=== PATIENT | male | born 1935 | race Caucasian/White ===

== ENCOUNTER 2019-02-11 11:29 | Inpatient (IN) ==
[2019-02-11] MEDS ORDERED: Isovue-370 500 ML BOTTLE IVP ONE ×2 (11:43→12:39)
[2019-02-11] MEDS ORDERED: 0.9 % Sodium Chloride 1,000 ML IVC STA ×3 (11:44→13:54)
[2019-02-11] MEDS ORDERED: Ondansetron 4 MG/2 ML VIAL IVP STA (11:44)
--- NOTE | 2019-02-11 11:55 | Emergency Department Note ---
Disposition Clinical Impression: Elevated troponin I level, AV block, Mobitz 2 UTI (urinary tract infection) Qualifiers: Urinary tract infection type: acute cystitis Hematuria presence: without hematuria Qualified Code(s): N30.00 - Acute cystitis without hematuria Acute on chronic kidney failure Qualifiers: Acute renal failure type: with acute tubular necrosis Chronic kidney disease stage: unspecified stage Qualified Code(s): N17.0 - Acute kidney failure with tubular necrosis Disposition: Admitted As Inpatient Condition: Fair Time of Disposition: 18:25 General Adult HPI - General Stated complaint: nausea/vomiting Time Seen by Provider: 02/11/19 11:36 Nursing Notes Reviewed: Yes Vital Signs Reviewed: Yes - History of Present Illness HPI Narrative: 83-year-old male with history of prostate cancer on chemotherapy since last year, CABG, HTN who presents the emergency department with family via EMS secondary to syncope, nausea, vomiting and generalized malaise. Is been wors ening over the last few days. He did have a syncopal episode yesterday where he fell. This was unwitnessed and he is unsure if he hit his head or loss consciousness. He otherwise had one episode of nausea, vomiting today though he does not complain of abdominal pain. Family states he has had decreased oral intake and they are concerned he is dehydrated. Otherwise the patient denies any chest pain, shortness of breath, fever, chills, cough, numbness, tingling, or focal weakness. - Related Data Home Medications Medication Instructions Recorded Confirmed Aspirin [Lo-Dose Aspirin EC] 81 mg PO DAILY 02/11/19 02/11/19 Atorvastatin Calcium [Lipitor] 20 mg PO DAILY 02/11/19 02/11/19 Enzalutamide [Xtandi] 60 mg PO QID 02/11/19 02/11/19 Metoprolol Succinate 25 mg PO DAILY 02/11/19 02/11/19 Ramipril [Altace] 10 mg PO DAILY 02/11/19 02/11/19 hydroCHLOROthiazide 25 mg PO DAILY 02/11/19 02/11/19 [Hydrochlorothiazide] Allergies Allergy/AdvReac Type Severity Reaction Status Date / Time Penicillins Allergy Hives Verified 02/11/19 11:59 Review of Systems: ROS per history of present illness, all other systems reviewed and negative or normal. All systems ED: reviewed and negative except as stated. Review of Systems: As Per HPI Physical Exam General: Conversant. No apparent distress. Follow commands. Appears stated age. Neck: No JVD. Trachea midline. Neck supple. Eyes: PERRL. No scleral icterus. HENT: Normocephalic and atraumatic. Dry mucus membranes. Cardiovascular: Regular rate and rhythm. Normal S1 and S2. No murmurs appreciated. Normal capillary refill. Extremities well perfused with 2+ distal pulses bilaterally. No edema. Pulmonary: Normal and equal breath sounds bilaterally, anteriorly and posteriorly. No wheezes, rales, or rhonchi. Not in respiratory distress. Speaks in full sentences. Abdomen: Soft, nondistended, and tontender. No bruits or masses. No guarding. Neuro: Alert and oriented x3. No slurred speech. No focal deficits noted. Does appear intermittently confused on details of his conditions. Skin: No rashes noted on visualized skin. Musculoskeletal: No bony abnormalities visualized. Moves all extremities. Psych: Normal mood. Pleasant. Makes appropriate eye contact. Course - Reevaluation(s) Reevaluation #1: Patient now on 3L fluid bolus and continues to be hypotensive with systolic in 90s. He continues to feel comfortable. 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 Will repeat EKG. Hospitalist paged and discussed case and prefers to wait for full EKG and cardiology recommendations. Time: 16:49 Vital Signs Temperature 97.4 F L 02/11/19 11:35 Pulse Rate 57 02/11/19 11:35 Respiratory Rate 20 02/11/19 11:35 Blood Pressure 76/42 02/11/19 11:35 O2 Sat by Pulse Oximetry 94 02/11/19 11:35 Temperature 98.0 F 02/11/19 18:42 Pulse Rate 61 02/11/19 18:42 Respiratory Rate 14 02/11/19 18:42 Blood Pressure 108/50 02/11/19 18:42 O2 Sat by Pulse Oximetry 96 02/11/19 18:42 Oxygen Delivery Oxygen Delivery Room Air Medical Decision Making - [facility] Narrative Medical decision making narrative: 83-year-old male with history of prostate cancer, CABG, hypertension who presents the emergency department with complaints of nausea, vomiting, and syncope yesterday. On arrival patient's hypotensive but other vital signs stable. Afebrile. Not tachycardic. He is alert and oriented 3 but does not appear to be fully capable of providing an adequate history. The patient does appear to be dehydrated therefore initiated fluid resuscitation and obtain laboratory evaluation as well as imaging of his head and abdomen/pelvis. Patient's laboratory evaluation shows No significant leukocytosis, anemia with hemoglobin 11.9. BMP shows he went 87, creatinine 3.53 without elevated LFTs. Urinalysis shows urinary tract infection. The patient received total of 3 L fluid bolus and then was started on maintenance fluids with normal saline with persistent low blood pressures with stable and he did not require vasopressor support. He was initiated on IV Rocephin. Lactate not elevated. Blood cultures drawn. Otherwise given the patient's fall that was unwitnessed CT head was obta ined which shows no evidence of acute intracranial hemorrhage. CT abdomen/pelvis shows no acute abnormalities but does show right lower quadrant fluid collection of indeterminate origin. At this point do not believe this is of clinical significance. Initial EKG shows prolonged LA interval but otherwise no evidence of acute ischemic abnormalities. After fluid resuscitation here in the emergency department the patient had a run on telemetry which shows possible Mobitz type II AV block. Repeat EKG was obtained which shows similar findings to previous and the type II AV block was not visualized fully. Cardiology was contacted who recommends continued management of urinary tract infection, acute on chronic kidney disease and dehydration but will consult to see the patient while admitted. Given the patient's likely acute on chronic kidney disease, hypotension, elevated troponin, AV block do believe he warrants inpatient admission. Discussed case with on-call hospitalist Dr. Solo who agrees with plan for admission and accepts the patient to the inpatient service. Patient agrees with and understands course of treatment plan including plan for admission. All questions answered. - Medical Records Medical records reviewed: Yes I reviewed the patient's medical records. - Lab Data Lab results reviewed: Yes I reviewed the patient's lab results. Result diagrams: 02/11/19 11:55 02/11/19 18:57 Lab Results 02/11/19 02/11/19 02/11/19 Range/Units 11:55 11:55 11:55 WBC 7.4 (4.3-11.1) K/mcL RBC 3.76 L (4.19-5.50) M/mcL Hgb 11.9 L (12.9-16.9) g/dL Hct 36.4 L (37.5-50.1) % MCV 96.8 (83.0-100.0) fL MCH 31.6 (28.0-33.3) pg MCHC 32.7 (31.6-35.5) g/dL RDW 14.0 (11.5-14.5) % Plt Count 219 (140-400) K/mcL MPV 11.7 (9.4-12.4) fL Immature Gran % 0.8 (0-4) % Seg Neutrophils % 81.0 % Lymphocytes % 7.2 % Monocytes % 8.3 % Eosinophils % 2.3 % Basophils % 0.4 % Neutrophils # 6.0 (1.6-8.9) K/mcL Lymphocytes # 0.5 L (0.6-4.6) K/mcL Monocytes # 0.6 (0.0-1.3) K/mcL Eosinophils # 0.2 (0.0-0.6) K/mcL Basophils # 0.0 (0.0-0.2) K/mcL PT (9.4-12.1) Seconds INR APTT (26.0-36.0) Seconds Sodium 136 (136-145) mEq/L Potassium 4.4 (3.5-5.1) mEq/L Chloride 103 (98-107) mEq/L Carbon Dioxide 20 L (23-29) mEq/L BUN 87 H (8-23) mg/dL Creatinine 3.53 H (0.70-1.30) mg/dL Est GFR ( Amer) 20 L (> 60) Est GFR (Non-Af Amer) 17 L (> 60) BUN/Creatinine Ratio 25 (6-26) Glucose 221 H (70-105) mg/dL Calculated Osmolality 315 H (280-300) Lactic Acid 1.7 (0.5-2.2) mmol/L Calcium 10.0 (8.6-10.3) mg/dL Total Bilirubin 1.0 (0.3-1.0) mg/dL Direct Bilirubin 0.1 (0.0-0.2) mg/dL Indirect Bilirubin 0.9 (0.0-1.2) mg/dL AST 19 (13-39) Units/L ALT 11 (7-52) Units/L Alkaline Phosphatase 75 (34-104) Units/L Troponin I 0.20 H* (< 0.04) ng/mL Serum Total Protein 6.7 (6.4-8.9) g/dL Albumin 3.9 (3.5-5.7) g/dL Globulin 2.8 (2.4-3.5) g/dL Albumin/Globulin Ratio 1.4 (1.1-2.2) Lipase 36 (11-82) Units/L TSH 2.857 (0.340-5.600) mcIU/mL Urine Color (Yellow) Urine Clarity (Clear) Urine pH (5.0-8.0) pH Units Ur Specific [place] (1.010-1.025) Urine Protein (Neg-Trace) mg/dL Urine Glucose (UA) (Normal) mg/dL Urine Ketones (Negative) mg/dL Urine Blood (Negative) Urine Nitrite (Negative) Urine Bilirubin (Negative) Urine Urobilinogen (Normal) mg/dL Ur Leukocyte Esterase (Negative) Urine Microscopic WBC (0-3) per hpf Ur Squamous Epith Cells (None-Few) per lpf Urine Bacteria (None-Few) per hpf Hyaline Casts (None-Few) per lpf Ur Culture Indicated? (NO) 02/11/19 02/11/19 Range/Units 11:55 13:27 WBC (4.3-11.1) K/mcL RBC (4.19-5.50) M/mcL Hgb (12.9-16.9) g/dL Hct (37.5-50.1) % MCV (83.0-100.0) fL MCH (28.0-33.3) pg MCHC (31.6-35.5) g/dL RDW (11.5-14.5) % Plt Count (140-400) K/mcL MPV (9.4-12.4) fL Immature Gran % (0-4) % Seg Neutrophils % % Lymphocytes % % Monocytes % % Eosinophils % % Basophils % % Neutrophils # (1.6-8.9) K/mcL Lymphocytes # (0.6-4.6) K/mcL Monocytes # (0.0-1.3) K/mcL Eosinophils # (0.0-0.6) K/mcL Basophils # (0.0-0.2) K/mcL PT 11.6 (9.4-12.1) Seconds INR 1.0 APTT 33.5 (26.0-36.0) Seconds Sodium (136-145) mEq/L Potassium (3.5-5.1) mEq/L Chloride (98-107) mEq/L Carbon Dioxide (23-29) mEq/L BUN (8-23) mg/dL Creatinine (0.70-1.30) mg/dL Est GFR ( Amer) (> 60) Est GFR (Non-Af Amer) (> 60) BUN/Creatinine Ratio (6-26) Glucose (70-105) mg/dL Calculated Osmolality (280-300) Lactic Acid (0.5-2.2) mmol/L Calcium (8.6-10.3) mg/dL Total Bilirubin (0.3-1.0) mg/dL Direct Bilirubin (0.0-0.2) mg/dL Indirect Bilirubin (0.0-1.2) mg/dL AST (13-39) Units/L ALT (7-52) Units/L Alkaline Phosphatase (34-104) Units/L Troponin I (< 0.04) ng/mL Serum Total Protein (6.4-8.9) g/dL Albumin (3.5-5.7) g/dL Globulin (2.4-3.5) g/dL Albumin/Globulin Ratio (1.1-2.2) Lipase (11-82) Units/L TSH (0.340-5.600) mcIU/mL Urine Color Yellow (Yellow) Urine Clarity Cloudy A (Clear) Urine pH 5.0 (5.0-8.0) pH Units Ur Specific [place] 1.016 (1.010-1.025) Urine Protein Trace (Neg-Trace) mg/dL Urine Glucose (UA) 100 H (Normal) mg/dL Urine Ketones Negative (Negative) mg/dL Urine Blood Negative (Negative) Urine Nitrite Negative (Negative) Urine Bilirubin Negative (Negative) Urine Urobilinogen Normal (Normal) mg/dL Ur Leukocyte Esterase Large H (Negative) Urine Microscopic WBC 30-50 H (0-3) per hpf Ur Squamous Epith Cells Many H (None-Few) per lpf Urine Bacteria None Seen (None-Few) per hpf Hyaline Casts None Seen (None-Few) per lpf Ur Culture Indicated? YES A (NO) - Radiology Data Radiology results reviewed: Yes I reviewed the patient's radiology results. Chest X-Ray 02/11/19 11:42 IMPRESSION: No acute cardiopulmonary disease. D/ / Anthony Jaffe MD / Antohny Jaffe MD Interpreting Provider: Anthony Jaffe MD Head CT 02/11/19 11:54 IMPRESSION: Atrophy and small vessel ischemic disease. Possible polyp extending from the posterior left nasal passage to the nasopharynx. Recommend correlation with direct visualization. Diverticulosis, without vivian diverticulitis. 2.6 cm simple density anterior right lower quadrant fluid collection, potentially postoperative seroma, aged hematoma, or lymphocele, sterility indeterminate. Correlate with any history of surgery in the region. D/ / Bola Velasco MD / Bola Velasco MD Interpreting Provider: Bola Velasco MD Abdomen/Pelvis CT 02/11/19 12:41 IMPRESSION: Atrophy and small vessel ischemic disease. Possible polyp extending from the posterior left nasal passage to the nasopharynx. Recommend correlation with direct visualization. Diverticulosis, without vivian diverticulitis. 2.6 cm simple density anterior right lower quadrant fluid collection, potentially postoperative seroma, aged hematoma, or lymphocele, sterility indeterminate. Correlate with any history of surgery in the region. D/ / Bola Velasco MD / Bola Velasco MD Interpreting Provider: Bola Velasco MD - EKG Data EKG #1 EKG attestation: Yes I reviewed and interpreted this EKG. EKG results narrative: Normal sinus rhythm rate of 56. Normal axis. Prolonged LA interval 353. No acute ST elevations or T-wave abnormalities. No prior for comparison. Repeat EKG similar to previous, no evidence of further AV block.
[2019-02-11 12:17] LABS: Basophils % 0.4 %; Eosinophils # 0.2 K/mcL (0.0-0.6); Eosinophils % 2.3 %; Hematocrit 36.4 % (37.5-50.1); Hemoglobin 11.9 g/dL (12.9-16.9); Immature Granulocytes % 0.8 % (0-4); Lymphocytes # 0.5 K/mcL (0.6-4.6); Lymphocytes % 7.2 %; Mean Corpuscular HGB Conc 32.7 g/dL (31.6-35.5); Mean Corpuscular Hemoglobin 31.6 pg (28.0-33.3); Mean Corpuscular Volume 96.8 fL (83.0-100.0); Mean Platelet Volume 11.7 fL (9.4-12.4); Monocytes # 0.6 K/mcL (0.0-1.3); Monocytes % 8.3 %; Platelet Count 219 K/mcL (140-400); Red Blood Count 3.76 M/mcL (4.19-5.50); White Blood Count 7.4 K/mcL (4.3-11.1)
[2019-02-11 12:29] LABS: Prothrombin Time 11.6 Seconds (9.4-12.1)
[2019-02-11 12:31] LABS: Activated Partial Thrombo Time 33.5 Seconds (26.0-36.0)
[2019-02-11 12:38] LABS: Albumin 3.9 g/dL (3.5-5.7); Albumin/Globulin Ratio 1.4 (1.1-2.2); Bilirubin,Direct 0.1 mg/dL (0.0-0.2); Bilirubin,Indirect 0.9 mg/dL (0.0-1.2); Globulin 2.8 g/dL (2.4-3.5); Potassium 4.4 mEq/L (3.5-5.1); Total Protein 6.7 g/dL (6.4-8.9); Troponin I 0.2 ng/mL (< 0.04)
[2019-02-11 13:35] LABS: Bilirubin,Urine Negative (Negative); Blood,Urine Negative (Negative); Clarity,Urine Cloudy (Clear); Color,Urine Yellow (Yellow); Glucose,Urine (UA) 100 mg/dL (Normal); Ketones,Urine Negative (Negative); Leukocyte Esterase,Urine Large (Negative); Nitrite,Urine Negative (Negative); Protein,Urine Trace mg/dL (Neg-Trace); Specific Gravity,Urine 1.016 (1.010-1.025); Urobilinogen,Urine Normal (Normal)
[2019-02-11 13:38] LABS: Bacteria,Urine None Seen per hpf (None-Few); Hyaline Casts,Urine None Seen per lpf (None-Few); Squamous Epithelial Cell,Urine Many per lpf (None-Few); WBC,Urine 30-50 per hpf (0-3)
[2019-02-11] MEDS ORDERED: cefTRIAXone 1,000 MG in Water for inj. (sterile) 10 ML IVP ONE (13:59)
--- NOTE | 2019-02-11 16:49 | Emergency Department Note ---
Disposition Clinical Impression: Elevated troponin I level, AV block, Mobitz 2 UTI (urinary tract infection) Qualifiers: Urinary tract infection type: acute cystitis Hematuria presence: without hematuria Qualified Code(s): N30.00 - Acute cystitis without hematuria Acute on chronic kidney failure Qualifiers: Acute renal failure type: with acute tubular necrosis Chronic kidney disease stage: unspecified stage Qualified Code(s): N17.0 - Acute kidney failure with tubular necrosis Disposition: Admitted As Inpatient Condition: Fair Time of Disposition: 18:25 General Adult HPI - General Chief complaint: ED Syncope Stated complaint: nausea/vomiting Time Seen by Provider: 02/11/19 11:36 - History of Present Illness Pain Scale: 0 - Related Data Home Medications Medication Instructions Recorded Confirmed Aspirin [Lo-Dose Aspirin EC] 81 mg PO DAILY 02/11/19 02/11/19 Atorvastatin Calcium [Lipitor] 20 mg PO DAILY 02/11/19 02/11/19 Enzalutamide [Xtandi] 60 mg PO QID 02/11/19 02/11/19 Metoprolol Succinate 25 mg PO DAILY 02/11/19 02/11/19 Ramipril [Altace] 10 mg PO DAILY 02/11/19 02/11/19 hydroCHLOROthiazide 25 mg PO DAILY 02/11/19 02/11/19 [Hydrochlorothiazide] Allergies Allergy/AdvReac Type Severity Reaction Status Date / Time Penicillins Allergy Hives Verified 02/11/19 11:59 Past Medical History - Past Medical History Medical history: Reports: cancer, diabetes, myocardial infarction, renal disease - Social History Smoking Status: Never smoker Alcohol use: Reports: none Drug use: Reports: none Physical Exam - General General appearance: alert, in no apparent distress Course Vital Signs Temperature 97.4 F L 02/11/19 11:35 Pulse Rate 57 02/11/19 11:35 Respiratory Rate 20 02/11/19 11:35 Blood Pressure 76/42 02/11/19 11:35 O2 Sat by Pulse Oximetry 94 02/11/19 11:35 Temperature 98.0 F 02/11/19 18:42 Pulse Rate 61 02/11/19 18:42 Respiratory Rate 14 02/11/19 18:42 Blood Pressure 108/50 02/11/19 18:42 O2 Sat by Pulse Oximetry 96 02/11/19 18:42 Oxygen Delivery Oxygen Delivery Room Air Medical Decision Making - Lab Data Result diagrams: 02/11/19 11:55 02/11/19 18:57 Lab Results 02/11/19 02/11/19 02/11/19 Range/Units 11:55 11:55 11:55 WBC 7.4 (4.3-11.1) K/mcL RBC 3.76 L (4.19-5.50) M/mcL Hgb 11.9 L (12.9-16.9) g/dL Hct 36.4 L (37.5-50.1) % MCV 96.8 (83.0-100.0) fL MCH 31.6 (28.0-33.3) pg MCHC 32.7 (31.6-35.5) g/dL RDW 14.0 (11.5-14.5) % Plt Count 219 (140-400) K/mcL MPV 11.7 (9.4-12.4) fL Immature Gran % 0.8 (0-4) % Seg Neutrophils % 81.0 % Lymphocytes % 7.2 % Monocytes % 8.3 % Eosinophils % 2.3 % Basophils % 0.4 % Neutrophils # 6.0 (1.6-8.9) K/mcL Lymphocytes # 0.5 L (0.6-4.6) K/mcL Monocytes # 0.6 (0.0-1.3) K/mcL Eosinophils # 0.2 (0.0-0.6) K/mcL Basophils # 0.0 (0.0-0.2) K/mcL PT (9.4-12.1) Seconds INR APTT (26.0-36.0) Seconds Sodium 136 (136-145) mEq/L Potassium 4.4 (3.5-5.1) mEq/L Chloride 103 (98-107) mEq/L Carbon Dioxide 20 L (23-29) mEq/L BUN 87 H (8-23) mg/dL Creatinine 3.53 H (0.70-1.30) mg/dL Est GFR ( Amer) 20 L (> 60) Est GFR (Non-Af Amer) 17 L (> 60) BUN/Creatinine Ratio 25 (6-26) Glucose 221 H (70-105) mg/dL Calculated Osmolality 315 H (280-300) Lactic Acid 1.7 (0.5-2.2) mmol/L Calcium 10.0 (8.6-10.3) mg/dL Total Bilirubin 1.0 (0.3-1.0) mg/dL Direct Bilirubin 0.1 (0.0-0.2) mg/dL Indirect Bilirubin 0.9 (0.0-1.2) mg/dL AST 19 (13-39) Units/L ALT 11 (7-52) Units/L Alkaline Phosphatase 75 (34-104) Units/L Troponin I 0.20 H* (< 0.04) ng/mL Serum Total Protein 6.7 (6.4-8.9) g/dL Albumin 3.9 (3.5-5.7) g/dL Globulin 2.8 (2.4-3.5) g/dL Albumin/Globulin Ratio 1.4 (1.1-2.2) Lipase 36 (11-82) Units/L TSH 2.857 (0.340-5.600) mcIU/mL Urine Color (Yellow) Urine Clarity (Clear) Urine pH (5.0-8.0) pH Units Ur Specific [place] (1.010-1.025) Urine Protein (Neg-Trace) mg/dL Urine Glucose (UA) (Normal) mg/dL Urine Ketones (Negative) mg/dL Urine Blood (Negative) Urine Nitrite (Negative) Urine Bilirubin (Negative) Urine Urobilinogen (Normal) mg/dL Ur Leukocyte Esterase (Negative) Urine Microscopic WBC (0-3) per hpf Ur Squamous Epith Cells (None-Few) per lpf Urine Bacteria (None-Few) per hpf Hyaline Casts (None-Few) per lpf Ur Culture Indicated? (NO) 02/11/19 02/11/19 Range/Units 11:55 13:27 WBC (4.3-11.1) K/mcL RBC (4.19-5.50) M/mcL Hgb (12.9-16.9) g/dL Hct (37.5-50.1) % MCV (83.0-100.0) fL MCH (28.0-33.3) pg MCHC (31.6-35.5) g/dL RDW (11.5-14.5) % Plt Count (140-400) K/mcL MPV (9.4-12.4) fL Immature Gran % (0-4) % Seg Neutrophils % % Lymphocytes % % Monocytes % % Eosinophils % % Basophils % % Neutrophils # (1.6-8.9) K/mcL Lymphocytes # (0.6-4.6) K/mcL Monocytes # (0.0-1.3) K/mcL Eosinophils # (0.0-0.6) K/mcL Basophils # (0.0-0.2) K/mcL PT 11.6 (9.4-12.1) Seconds INR 1.0 APTT 33.5 (26.0-36.0) Seconds Sodium (136-145) mEq/L Potassium (3.5-5.1) mEq/L Chloride (98-107) mEq/L Carbon Dioxide (23-29) mEq/L BUN (8-23) mg/dL Creatinine (0.70-1.30) mg/dL Est GFR ( Amer) (> 60) Est GFR (Non-Af Amer) (> 60) BUN/Creatinine Ratio (6-26) Glucose (70-105) mg/dL Calculated Osmolality (280-300) Lactic Acid (0.5-2.2) mmol/L Calcium (8.6-10.3) mg/dL Total Bilirubin (0.3-1.0) mg/dL Direct Bilirubin (0.0-0.2) mg/dL Indirect Bilirubin (0.0-1.2) mg/dL AST (13-39) Units/L ALT (7-52) Units/L Alkaline Phosphatase (34-104) Units/L Troponin I (< 0.04) ng/mL Serum Total Protein (6.4-8.9) g/dL Albumin (3.5-5.7) g/dL Globulin (2.4-3.5) g/dL Albumin/Globulin Ratio (1.1-2.2) Lipase (11-82) Units/L TSH (0.340-5.600) mcIU/mL Urine Color Yellow (Yellow) Urine Clarity Cloudy A (Clear) Urine pH 5.0 (5.0-8.0) pH Units Ur Specific [place] 1.016 (1.010-1.025) Urine Protein Trace (Neg-Trace) mg/dL Urine Glucose (UA) 100 H (Normal) mg/dL Urine Ketones Negative (Negative) mg/dL Urine Blood Negative (Negative) Urine Nitrite Negative (Negative) Urine Bilirubin Negative (Negative) Urine Urobilinogen Normal (Normal) mg/dL Ur Leukocyte Esterase Large H (Negative) Urine Microscopic WBC 30-50 H (0-3) per hpf Ur Squamous Epith Cells Many H (None-Few) per lpf Urine Bacteria None Seen (None-Few) per hpf Hyaline Casts None Seen (None-Few) per lpf Ur Culture Indicated? YES A (NO) Attestation Statement - Attestation Attestation: I examined this patient and my medical decision-making was reviewed with the Resident Physician. I agree with the documented findings, disposition and zhane atment plan as described except to the extent set forth below. Patient 83-year-old gentleman who presents to the emergency department with a chief complaint of generalized weakness. The patient family reports that yesterday he was extremely weak and fell out of the golf cart. There is no signs of trauma to the patient Physical exam patient's awake alert and will answer questions. Appears extr jacqueline weak in the room. Medical decision management the patient went laboratory studies showed the patient have acute kidney injury the patient also has a urinary tract infection and while in emergency department the patient appeared to have a bradycardia dysrhythmia with interval block. The case was discussed with the hospitalist the patient will be admitted to the hospitalist service I personally supervised and was present for the spicer/critical portions of the following procedures completed by the resident:EKG.
[2019-02-11] MEDS ORDERED: Acetaminophen 325 MG TABLET PO PRN (17:51)
[2019-02-11] MEDS ORDERED: Ondansetron ODT 4 MG TAB.RAPDIS SL PRN (17:51)
[2019-02-11] MEDS ORDERED: *HR* Promethazine 25 MG/ML VIAL IVP PRN (17:51)
[2019-02-11] MEDS ORDERED: Naloxone 0.4 MG/ML INJ IVP PRN (17:51)
[2019-02-11 17:53] LABS: Thyroid Stimulating Hormone 2.857 mcIU/mL (0.340-5.600)
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
[2019-02-11 19:39] LABS: Calcium 8.7 mg/dL (8.6-10.3); Potassium 4.1 mEq/L (3.5-5.1)
[2019-02-11] MEDS ORDERED: Ringers Solution, Lactated 1,000 ML IVC ONE (20:41)
[2019-02-12] MEDS: *HR* Heparin 5,000 UNIT/ML VIAL SQ SCH ×2 (05:16→16:45)
[2019-02-12 08:47] LABS: Basophils % 0.4 %; Eosinophils # 0.3 K/mcL (0.0-0.6); Eosinophils % 6.3 %; Hemoglobin 10.4 g/dL (12.9-16.9); Immature Granulocytes % 0.8 % (0-4); Lymphocytes # 0.6 K/mcL (0.6-4.6); Lymphocytes % 11.2 %; Mean Corpuscular HGB Conc 32.5 g/dL (31.6-35.5); Mean Corpuscular Volume 98.5 fL (83.0-100.0); Mean Platelet Volume 11.4 fL (9.4-12.4); Monocytes # 0.5 K/mcL (0.0-1.3); Neutrophils # 3.6 K/mcL (1.6-8.9); Platelet Count 144 K/mcL (140-400); Red Blood Count 3.25 M/mcL (4.19-5.50); Red Cell Distribution Width 13.9 % (11.5-14.5); Segmented Neutrophils % 71.3 %; White Blood Count 5.1 K/mcL (4.3-11.1)
[2019-02-12] MEDS: cefTRIAXone 1,000 MG in Water for inj. (sterile) 10 ML IVP SCH (08:47)
[2019-02-12] MEDS: Aspirin Enteric Coated 81 MG Tablet PO SCH (08:47)
[2019-02-12 09:09] LABS: Calcium 8.9 mg/dL (8.6-10.3); Potassium 4.2 mEq/L (3.5-5.1)
[2019-02-12 09:12] LABS: Troponin I 0.23 ng/mL (< 0.04)
--- NOTE | 2019-02-12 10:49 | Cardiology Consult Note ---
Date of Encounter: 02/12/19 Time of Encounter: 10:44 Assessment and Plan (1) Syncope Current Visit: Yes Status: Acute 83-year-old with a history of prostate cancer. Patient reports increasing fatigue and lack of energy since oral chemotherapy was increased 2 months ago. His appetite has greatly diminished. He does not maintain adequate hydration. Reports he has lost 30 pounds. Increasing weakness and fatigue but to shortness of breath with activity one week ago. This was followed by 2 syncopal/near syncopal events over the last 2 days. Since admission, reports IV fluids of greatly improved his symptoms. Family states he is much more alert and talkative. He appears dehydration was contributing to his symptoms. We discussed the importance of appropriate nutrition and hydration. Recommend hospitalist review chemotherapy agent and potential side effects, discuss with oncology. In the ER, there were concerns regarding bradycardia, possible [place] type II AV block. Unfortunately, ER ECG and telemetry strips are not available. Patient was not placed on telemetry. On examination, he is mildly bradycardic, heart rate 50s. Mild systolic murmur noted. Recommend ECG now and a.m. Place on telemetry. Check echocardiogram. Further recommendations to follow. Qualifiers: Syncope type: unspecified Qualified Code(s): R55 - Syncope and collapse (2) CAD (coronary artery disease) Current Visit: Yes Status: Acute Qualifiers: Coronary Disease-Associated Artery/Lesion type: [place] artery [place] vs. transplanted heart: [place] heart Associated angina: without angina Qualified Code(s): I25.10 - Atherosclerotic heart disease of [place] coronary artery without angina pectoris Discussion w patient/family: The assessment and plan as outlined above was discussed with the patient and/or family members who expressed understanding and agreement. All questions were answered. Thank you for involving us in the care of your patient. Please call with any questions. History of Present Illness Consult date: 02/12/19 Requesting physician: Micah Arellano Consult reason: Arrhythmia Chief complaint: Weakness History of present illness: Mr. Gonzalez is a 83 year old male with a reported history of CAD, previous CABG. 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 Cm in [place]. He has not been seen in 2-3 years. Significant recent history includes prostate cancer on oral chemotherapy. Per reports, chemotherapy dose increased and patient/family has noticed increasing weakness. Patient reports he has lost 30 pounds over the last few months. His appetite has greatly decreased and he does not drink much fluid. His symptoms worsened over the last week. He has noticed increasing fatigue, lack of energy, and exertional limitation. In the ER, noted to be hypotensive and possibly dehydrated. He was given IV fluids. Heart rate 50s. ER physician stated possible second-degree heart block on telemetry. Consultation requested. Unfortunately, ECGs from the ER are not currently on the floor were available. Patient was not placed on a playground monitor. Overall, patient reports he feels much better since admission. His family states IV fluids seemed to greatly help. He currently denies chest pain or discomfort. He denies current lightheadedness. Labs: Hemoglobin yesterday .9, today 10.4. Creatinine yesterday 2.94, today 2.47. Serial troponin 0.20, 0.21, 0.23. Urine culture is pending. TSH was normal. No previous cardiovascular testing in [facility]. Past Med Surg Social Fam HX - Past Medical History Medical history: cancer, diabetes, myocardial infarction, renal disease Additional medical history: prostate cancer - Past Surgical History Additional surgical history: hernia, bypass - Social History Smoking Status: Never smoker Alcohol use: none Drug use: none - Family History Father Hx Family Cardiac Disorders: Yes Medications and Allergies Aspirin [Lo-Dose Aspirin EC] 81 mg PO DAILY 02/11/19 [History] Atorvastatin Calcium [Lipitor] 20 mg PO DAILY 02/11/19 [History] Enzalutamide [Xtandi] 60 mg PO QID 02/11/19 [History] Metoprolol Succinate 25 mg PO DAILY 02/11/19 [History] Ramipril [Altace] 10 mg PO DAILY 02/11/19 [History] hydroCHLOROthiazide [Hydrochlorothiazide] 25 mg PO DAILY 02/11/19 [History] Allergy/AdvReac Type Severity Reaction Status Date / Time Penicillins Allergy Hives Verified 02/11/19 11:59 All Systems Review: The remainder of the systems were reviewed and are negative - Cardiovascular Cardiovascular: as per HPI, lightheadedness - Neurological Neurological: syncope Physical Examination Vital Signs, Last 4 Hours Temp Pulse Resp BP Pulse Ox 02/12/19 08:27 98.1 F 87 14 107/65 96 02/12/19 07:55 97.5 F L 50 16 93/55 94 General: Conversant, No Apparent Distress HEENT: Atraumatic, Normocephaly, Mucus Membranes Moist Neck: No JVD Cardiac: Other (Mildly bradycardic. Mild systolic murmur, grade 2.) Lungs: Normal Breath Sounds, No Wheeze, Rales, Rhonchi Neuro: Alert and responsive, No focal deficits noted Abdomen: Soft, Non-Tender Skin: No rashes noted on visualized skin Musculoskeletal: No Chest Wall Tenderness Extremities: No Clubbing, No Cyanosis, No Edema Results 02/12/19 08:31 02/12/19 08:31 Lab Results 02/11/19 02/11/19 02/11/19 11:55 11:55 11:55 WBC 7.4 Hgb 11.9 L Hct 36.4 L Plt Count 219 INR 1.0 APTT 33.5 Sodium 136 Potassium 4.4 Chloride 103 Carbon Dioxide 20 L BUN 87 H Creatinine 3.53 H Glucose 221 H Calcium 10.0 Total Bilirubin 1.0 AST 19 ALT 11 Alkaline Phosphatase 75 Troponin I 0.20 H* B-Natriuretic Peptide Lipase 36 TSH 2.857 02/11/19 02/11/19 02/11/19 18:57 18:57 20:38 WBC Hgb Hct Plt Count INR APTT Sodium 138 Potassium 4.1 Chloride 108 H Carbon Dioxide 21 L BUN 75 H Creatinine 2.94 H Glucose 122 H Calcium 8.7 Total Bilirubin AST ALT Alkaline Phosphatase Troponin I 0.21 H* B-Natriuretic Peptide 413 H Lipase TSH 02/12/19 02/12/19 08:31 08:31 WBC 5.1 Hgb 10.4 L D Hct 32.0 L Plt Count 144 INR APTT Sodium 139 Potassium 4.2 Chloride 106 Carbon Dioxide 23 BUN 61 H Creatinine 2.47 H Glucose 112 H Calcium 8.9 Total Bilirubin AST ALT Alkaline Phosphatase Troponin I 0.23 H* B-Natriuretic Peptide Lipase TSH - EKG Interpretation EKG results cardiology: other (ECG from is unavailable.) Consult Discharge Plan - Plan Referrals: Suzi Aponte, BOILER RELINER [Primary Care Provider] -
[2019-02-12] MEDS ORDERED: Naloxone 0.4 MG/ML INJ IVP PRN (12:18)
[2019-02-12] MEDS ORDERED: Ringers Solution, Lactated 1,000 ML IVC ONE (12:20)
[2019-02-12] MEDS ORDERED: Perflutren Lipid Microsphere 1.3 ML in 0.9 % Sodium Chloride 8.7 ML IVP ONE (12:24)
--- NOTE | 2019-02-12 12:24 | Internal Med Progress Note ---
Hospitalist Progress Note - Encounter Date of Encounter: 02/12/19 Time of Encounter: 12:22 - Subjective Interval History: Patient feeling much improved from IV fluids yesterday. Creatinine trending down. - Exam Vitals: Temp Pulse Resp BP Pulse Ox 97.5 F L 86 16 109/45 94 02/12/19 12:18 02/12/19 12:18 02/12/19 12:18 02/12/19 12:18 02/12/19 12:18 Exam: General: Ill-appearing and in no acute distress HEENT: No erythema of posterior pharynx. No exudates. Lymphatics: No mandibular or cervical lymphadenopathy Cardiovascular: RRR. No murmurs. No chest wall tenderness. Lungs: Clear to auscelltation bilaterally. Regular chest rise. Abdomen: Non-tender. No rebound or gaurding. Nl bowel sounds. Extremities: No edema. 2+ pulses radial and pedal pulses Skin: No rahses, abrasions, or contusions. Nl cap refill. Psych: Short-term memory appears impaired and patient rambles when speaking. A&Ox3 Neuro: steward/stewardess lounge II-XII intact. 5/5 strength. Sensation to light touch and pinprick intact. - Assessment and Plan (1) Hypovolemia due to dehydration Current Visit: Yes Status: Acute Assessment and Plan: Patient with history of prostate cancer on oral chemotherapy and hypertension on hydrochlorothiazide and RAY inhibitor presents with 2 weeks of weakness and presyncopal episodes in the setting of hypotension on presentation but otherwise stable vitals (did not meet SIRS/Sepsis criteria), largely unremarkable physical exam, acute kidney failure, troponin elevation, UA concerning for infection, and extensive imaging without acute pathology. -Severe dehydration likely secondary to intolerance of increased dose of chemotherapy in the setting of diuretic use -Acute cystitis may also be contributing to dehydration - culture still pending -Feels much improved after IV fluids yesterday. PLANS: - Status post 3 L of IV fluids - We will discuss chemotherapy with patient's oncologist on Wednesday. In the meantime, hold therapy - Treatment for acute cystitis (2) Acute cystitis without hematuria Current Visit: Yes Status: Acute Assessment and Plan: Likely contributing to hypovolemia. Patient has no symptoms. No history of BPH, however, patient has history of prostate cancer so likely large prostate. Culture still pending. Bladder scans negative. - Ceftriaxone 1g qd (3) Prostate cancer Current Visit: Yes Status: Acute Assessment and Plan: On oral chemotherapy (Enzalutamide) o/p. Follows with oncology in [place]. - We will discuss status of cancer with patient's oncologist on Wednesday (4) Acute on chronic kidney failure Current Visit: Yes Status: Acute Assessment and Plan: Severe renal impairment on admission in setting of dehydration likely pre-renal + ATN. Unclear if patient has chronic renal insufficiency but this is suspected. Improving with IV fluids. - IVF (5) Second degree heart block Current Visit: Yes Status: Acute Assessment and Plan: EKG with first-degree heart block and question of secondary heart block on telemetry. Cardiology was consulted and reviewed telemetry strips. Do not believe patient has a primary electrocardiac process but rather abnormalities related to severe dehydration. Cardiology consultation, recommendations below. - Repeat EKG - Monitor on telemetry - Echocardiogram (6) Elevated troponin I level Current Visit: Yes Status: Acute Assessment and Plan: Likely due to stress causing type II demand ischemia in setting of hypovolemia. - Trend (7) CAD (coronary artery disease) Current Visit: Yes Status: Acute Assessment and Plan: History of CABG in the past. - Continue home aspirin and statin - Hold blood pressure medications DVT Prophylaxis: heparin - Time Spent with Patient Total time spent is greater than 50% in coordination of care (as documented) at patient's floor/unit and/or counseling patient: Internal Medicine: Result - Labs CBC & Chem 7: 02/12/19 08:31 02/12/19 08:31 Labs: Short CBC 02/12/19 Range/Units 08:31 WBC 5.1 (4.3-11.1) K/mcL Hgb 10.4 L D (12.9-16.9) g/dL Hct 32.0 L (37.5-50.1) % Plt Count 144 (140-400) K/mcL Neutrophils # 3.6 (1.6-8.9) K/mcL BMP 02/11/19 02/11/19 02/12/19 11:55 18:57 08:31 Sodium 136 138 139 Potassium 4.4 4.1 4.2 Chloride 103 108 H 106 Carbon Dioxide 20 L 21 L 23 BUN 87 H 75 H 61 H Creatinine 3.53 H 2.94 H 2.47 H Glucose 221 H 122 H 112 H Calcium 10.0 8.7 8.9 Cardiac Enzymes 02/11/19 02/11/19 02/12/19 Range/Units 11:55 20:38 08:31 Troponin I 0.20 H* 0.21 H* 0.23 H* (< 0.04) ng/mL Liver Function 02/11/19 Range/Units 11:55 Total Bilirubin 1.0 (0.3-1.0) mg/dL Direct Bilirubin 0.1 (0.0-0.2) mg/dL AST 19 (13-39) Units/L ALT 11 (7-52) Units/L Alkaline Phosphatase 75 (34-104) Units/L Albumin 3.9 (3.5-5.7) g/dL Urine 02/11/19 Range/Units 13:27 Urine Color Yellow (Yellow) Urine Clarity Cloudy A (Clear) Urine pH 5.0 (5.0-8.0) pH Units Ur Specific [place] 1.016 (1.010-1.025) Urine Protein Trace (Neg-Trace) mg/dL Urine Glucose (UA) 100 H (Normal) mg/dL - ABG Interpretation ABG results: PT/INR, D-dimer PT 11.6 Seconds (9.4-12.1) 02/11/19 11:55 - Impressions Impressions Head CT 02/11/19 11:54 IMPRESSION: Atrophy and small vessel ischemic disease. Possible polyp extending from the posterior left nasal passage to the nasopharynx. Recommend correlation with direct visualization. Diverticulosis, without vivian diverticulitis. 2.6 cm simple density anterior right lower quadrant fluid collection, potentially postoperative seroma, aged hematoma, or lymphocele, sterility indeterminate. Correlate with any history of surgery in the region. D/ / Bola Velasco MD / Bola Velasco MD Interpreting Provider: Bola Velasco MD Abdomen/Pelvis CT 02/11/19 12:41 IMPRESSION: Atrophy and small vessel ischemic disease. Possible polyp extending from the posterior left nasal passage to the nasopharynx. Recommend correlation with direct visualization. Diverticulosis, without vivian diverticulitis. 2.6 cm simple density anterior right lower quadrant fluid collection, potentially postoperative seroma, aged hematoma, or lymphocele, sterility indeterminate. Correlate with any history of surgery in the region. D/ / Bola Velasco MD / Bola Velasco MD Interpreting Provider: Bola Velasco MD Consult Discharge Plan - Plan Referrals: Suzi Aponte, BANK OPERATIONS OFFICER [Primary Care Provider] - (4) Acute on chronic kidney failure Qualifiers: Acute renal failure type: with acute tubular necrosis Chronic kidney disease stage: unspecified stage Qualified Code(s): N17.0 - Acute kidney failure with tubular necrosis; N18.9 - Chronic kidney disease, unspecified (7) CAD (coronary artery disease) Qualifiers: Coronary Disease-Associated Artery/Lesion type: [place] artery [place] vs. transplanted heart: [place] heart Associated angina: without angina Qualified Code(s): I25.10 - Atherosclerotic heart disease of [place] coronary artery without angina pectoris
--- NOTE | 2019-02-12 21:16 | AcuteCare Surgery Consult Note ---
Date of Encounter: 02/12/19 Time of Encounter: 21:10 Assessment and Plan (1) Abnormal finding on CT scan Current Visit: Yes Status: Acute 83M currently on chemotherapy related to prostate cancer admitted for generalized malaise and weakness with an abnormal finding on CT; in the setting of a patient with a benign abdomen, the clinical significance of such a finding is likely low; I suspect it may have been there for quite sometime; low liklihood that is it typhlitis; diet as tolerated serial exams no acute surgery cares per primary team History of Present Illness Consult date: 02/12/19 Reason for consult: other (weakness) History of present illness: 83M PMh significant for prostate cancer (currently on chemotherapy), CAD s/p CABG presents with generalized weakness and syncope. Per the patient he has been weaker than his normal self over the last two weeks; which is the reason for his admission. A CT scan was obtained which demonstrated a small fluid collection along his cecum. General surgery was consulted for management recommendations. per the patient he has not had any abdominal pain, vomiting, nausea, nor anorexia. In addition he continues to have normal bowel function. No reports of fevers, chills or other systemic symptoms. When asking about his last colonoscopy he states it was within the last 2-3 years and no abnormalities were reported to him. No alarm symptoms such as dark tarry stools, rectal bleeding, nor change in bowel habits or caliber. of note, the patient states that when he was younger ('before they had p enicillin") he had appendicitis, but the decision was made to not operate. Past Med Surg Social Fam HX - Past Medical History Medical history: cancer, diabetes, myocardial infarction, renal disease Additional medical history: prostate cancer - Past Surgical History Additional surgical history: hernia, bypass - Social History Smoking Status: Never smoker Alcohol use: none Drug use: none - Family History Father Hx Family Cardiac Disorders: Yes Medications and Allergies Aspirin [Lo-Dose Aspirin EC] 81 mg PO DAILY 02/11/19 [History] Atorvastatin Calcium [Lipitor] 20 mg PO DAILY 02/11/19 [History] Metoprolol Succinate 25 mg PO DAILY 02/11/19 [History] Ramipril [Altace] 10 mg PO DAILY 02/11/19 [History] hydroCHLOROthiazide [Hydrochlorothiazide] 25 mg PO DAILY 02/11/19 [History] Enzalutamide [Xtandi] 160 mg PO DAILY 02/12/19 [History] Latanoprost [Xalatan] 1 drop BOTH EYES HS 02/12/19 [History] Allergy/AdvReac Type Severity Reaction Status Date / Time Penicillins Allergy Hives Verified 02/11/19 11:59 Review of Systems All systems PM: 12 point ROS negative besides HPI findings General Surgery Exam Initial Vital Signs Temp Pulse Resp BP Pulse Ox 97.4 F L 57 20 76/42 94 02/11/19 11:35 02/11/19 11:35 02/11/19 11:35 02/11/19 11:35 02/11/19 11:35 - General physical appearance no distress - Eyes PERRL, normal ocular movement - ENT normocephalic - Neck trachea midline, no lymphadectomy - Respiratory normal expansion, normal respiratory effort - Cardiovascular Cardiovascular exam: Present: RRR - Abdomen Abdomen general surgery: Present: soft, non tender - Integumentary Integumentary general surgery: Present: warm and dry, no abnormal pigmentation - Neurologic Present: CN 2-12 grossly intact - Musculoskeletal Present: normal posture - Psychiatric Psychiatric general surgery: Present: A&Ox3 Exam Initial Vital Signs Temp Pulse Resp BP Pulse Ox 97.4 F L 57 20 76/42 94 02/11/19 11:35 02/11/19 11:35 02/11/19 11:35 02/11/19 11:35 02/11/19 11:35 Results - Labs 02/12/19 08:31 02/12/19 08:31 Abnormal lab results RBC 3.25 M/mcL (4.19-5.50) L 02/12/19 08:31 Hgb 10.4 g/dL (12.9-16.9) L D 02/12/19 08:31 Hct 32.0 % (37.5-50.1) L 02/12/19 08:31 Lymphocytes # 0.5 K/mcL (0.6-4.6) L 02/11/19 11:55 Chloride 108 mEq/L (98-107) H 02/11/19 18:57 Carbon Dioxide 21 mEq/L (23-29) L 02/11/19 18:57 BUN 61 mg/dL (8-23) H 02/12/19 08:31 Creatinine 2.47 mg/dL (0.70-1.30) H 02/12/19 08:31 Est GFR ( Amer) 30 (> 60) L 02/12/19 08:31 Est GFR (Non-Af Amer) 25 (> 60) L 02/12/19 08:31 Glucose 112 mg/dL (70-105) H 02/12/19 08:31 POC Glucose 115 mg/dL (70-99) H 02/12/19 17:07 Calculated Osmolality 306 (280-300) H 02/12/19 08:31 Troponin I 0.21 ng/mL (< 0.04) H* 02/12/19 12:29 B-Natriuretic Peptide 413 pg/mL (Less than 100) H 02/11/19 18:57 Urine Clarity Cloudy (Clear) A 02/11/19 13:27 Urine Glucose (UA) 100 mg/dL (Normal) H 02/11/19 13:27 Ur Leukocyte Esterase Large (Negative) H 02/11/19 13:27 Urine Microscopic WBC 30-50 per hpf (0-3) H 02/11/19 13:27 Ur Squamous Epith Cells Many per lpf (None-Few) H 02/11/19 13:27 Ur Culture Indicated? YES (NO) A 02/11/19 13:27 Diabetes panel 02/12/19 Range/Units 08:31 Sodium 139 (136-145) mEq/L Potassium 4.2 (3.5-5.1) mEq/L Chloride 106 (98-107) mEq/L Carbon Dioxide 23 (23-29) mEq/L BUN 61 H (8-23) mg/dL Creatinine 2.47 H (0.70-1.30) mg/dL Glucose 112 H (70-105) mg/dL Calcium 8.9 (8.6-10.3) mg/dL Calcium panel 02/12/19 Range/Units 08:31 Calcium 8.9 (8.6-10.3) mg/dL Pituitary panel 02/12/19 Range/Units 08:31 Sodium 139 (136-145) mEq/L Potassium 4.2 (3.5-5.1) mEq/L Chloride 106 (98-107) mEq/L Carbon Dioxide 23 (23-29) mEq/L BUN 61 H (8-23) mg/dL Creatinine 2.47 H (0.70-1.30) mg/dL Glucose 112 H (70-105) mg/dL Calcium 8.9 (8.6-10.3) mg/dL Adrenal panel 02/12/19 Range/Units 08:31 Sodium 139 (136-145) mEq/L Potassium 4.2 (3.5-5.1) mEq/L Chloride 106 (98-107) mEq/L Carbon Dioxide 23 (23-29) mEq/L BUN 61 H (8-23) mg/dL Creatinine 2.47 H (0.70-1.30) mg/dL Glucose 112 H (70-105) mg/dL Calcium 8.9 (8.6-10.3) mg/dL All other labs normal. - Imaging CT scan - abdomen: report reviewed, image reviewed CT scan - pelvis: report reviewed, image reviewed Consult Discharge Plan - Plan Referrals: Suzi Aponte, BEAN PICKER MACHINE OPERATOR [Primary Care Provider] -
[2019-02-13 05:16] LABS: Hematocrit 32.3 % (37.5-50.1); Hemoglobin 10.8 g/dL (12.9-16.9); Mean Corpuscular HGB Conc 33.4 g/dL (31.6-35.5); Mean Corpuscular Hemoglobin 32.9 pg (28.0-33.3); Mean Corpuscular Volume 98.5 fL (83.0-100.0); Mean Platelet Volume 11.4 fL (9.4-12.4); Platelet Count 136 K/mcL (140-400); Red Blood Count 3.28 M/mcL (4.19-5.50); Red Cell Distribution Width 13.7 % (11.5-14.5); White Blood Count 4.4 K/mcL (4.3-11.1)
[2019-02-13 05:39] LABS: Calcium 9.3 mg/dL (8.6-10.3); Potassium 3.7 mEq/L (3.5-5.1)
[2019-02-13] MEDS: *HR* Heparin 5,000 UNIT/ML VIAL SQ SCH ×2 (05:59→17:31)
[2019-02-13] MEDS: cefTRIAXone 1,000 MG in Water for inj. (sterile) 10 ML IVP SCH (08:48)
[2019-02-13] MEDS: Aspirin Enteric Coated 81 MG Tablet PO SCH (08:48)
--- NOTE | 2019-02-13 09:07 | AcuteCareSurgery Progress Note ---
Date of Encounter: 02/13/19 Time of Encounter: 07:50 - Assessment and Plan (1) Abnormal finding on CT scan Current Visit: Yes Status: Acute The patient is completely asymptomatic in this area. There appears to be an age indeterminate fluid collection just anterior to the distal right external iliac artery. This does not appear to be connected to the digestive or urinary system. Physical examination is completely benign. Surgery feels that this is a completely benign findings and no further workup is necessary. Surgery will sign off Subjective Narrative: The patient is seen and evaluated on morning rounds with the acute care surgery team. We are specifically consult for an abnormal CAT scan. I personally reviewed the CAT scan prior to examining the patient. The patient appears to have a benign fluid collection in the soft tissues just anterior to the distal external right iliac artery. This does not appear to be connected with bowel or the urinary system. Physical examination specifically directed at this area is completely benign and femoral pulse is within normal limits. No further workup was recommended. We will be glad to reevaluate the patient if he becomes symptomatic. This appears to be a benign finding. Objective Vital Signs - Last 8 Hours Temp Pulse Resp BP Pulse Ox 02/13/19 07:54 98.3 F 65 17 138/73 98 02/13/19 05:24 97.9 F 62 15 125/68 94 Intake and Output 02/12/19 02/13/19 02/13/19 23:59 07:59 15:59 Other: Stool Size Small Stool Consistency loose # Voids 1 1 # Bowel Movements 1 Blood Glucose* 111 116 - General physical appearance well developed, well nourished, no distress, no pain - Respiratory normal expansion, normal respiratory effort, clear to percussion, clear to auscultation - Cardiovascular Cardiovascular exam: Present: RRR, no murmurs/rubs/gallops - Abdomen Abdomen: Present: bowel sounds present, soft, non tender (No palpable masses) - Neurologic CN 2-12 grossly intact, normal coordination, normal sensation - Psychiatric oriented to time, oriented to person, oriented to place, speech is normal, memory intact - Labs 02/13/19 04:52 02/13/19 04:52 Diabetes panel 02/12/19 02/13/19 Range/Units 08:31 04:52 Sodium 139 137 (136-145) mEq/L Potassium 4.2 3.7 (3.5-5.1) mEq/L Chloride 106 104 (98-107) mEq/L Carbon Dioxide 23 22 L (23-29) mEq/L BUN 61 H 49 H (8-23) mg/dL Creatinine 2.47 H 2.10 H (0.70-1.30) mg/dL Glucose 112 H 118 H (70-105) mg/dL Calcium 8.9 9.3 (8.6-10.3) mg/dL Calcium panel 02/12/19 02/13/19 Range/Units 08:31 04:52 Calcium 8.9 9.3 (8.6-10.3) mg/dL Pituitary panel 02/12/19 02/13/19 Range/Units 08:31 04:52 Sodium 139 137 (136-145) mEq/L Potassium 4.2 3.7 (3.5-5.1) mEq/L Chloride 106 104 (98-107) mEq/L Carbon Dioxide 23 22 L (23-29) mEq/L BUN 61 H 49 H (8-23) mg/dL Creatinine 2.47 H 2.10 H (0.70-1.30) mg/dL Glucose 112 H 118 H (70-105) mg/dL Calcium 8.9 9.3 (8.6-10.3) mg/dL Adrenal panel 02/12/19 02/13/19 Range/Units 08:31 04:52 Sodium 139 137 (136-145) mEq/L Potassium 4.2 3.7 (3.5-5.1) mEq/L Chloride 106 104 (98-107) mEq/L Carbon Dioxide 23 22 L (23-29) mEq/L BUN 61 H 49 H (8-23) mg/dL Creatinine 2.47 H 2.10 H (0.70-1.30) mg/dL Glucose 112 H 118 H (70-105) mg/dL Calcium 8.9 9.3 (8.6-10.3) mg/dL Consult Discharge Plan - Plan Referrals: Suzi Aponte, AUTOMOBILE SALES REPRESENTATIVE [Primary Care Provider] -
--- NOTE | 2019-02-13 12:01 | Cardiology Progress Note ---
Date of Encounter: 02/13/19 Time of Encounter: 11:30 Assessment and Plan (1) Mobitz type I Wenckebach atrioventricular block Current Visit: Yes Status: Acute Mobitz type 1 observed at times overnight, patient asymptomatic. Patient presented with suspected dehydration (kidney fxn improving) and anorexia after increase in chemotherapy doses HR 60's upon exam, first degree AV block noted. Home medication includes Toprol XL 25 mg daily--would recommend discontinuation upon discharge. Continue to monitor telemetry. No indication for PPM at this time. Avoid AV thomas blocking agents. (2) Renal insufficiency Current Visit: Yes Status: Acute SCr 3.10 upon admission, now 2.1 with IVF. Continue IVF. Mgmt per primary service. (3) CAD (coronary artery disease) Current Visit: Yes Status: Acute Hx of CAD s/p CABG. Troponin elevation likely secondary to demand ischemia; no chest pain reported. No indication for cardiac rehab. Continue asa and statin. No BB d/t bradycardia. TTE pending. Qualifiers: Coronary Disease-Associated Artery/Lesion type: [place] artery [place] vs. transplanted heart: [place] heart Associated angina: without angina Qualified Code(s): I25.10 - Atherosclerotic heart disease of [place] coronary artery without angina pectoris (4) Elevated troponin I level Current Visit: Yes Status: Acute Discussion w patient/family: The assessment and plan as outlined above was discussed with the patient and/or family members who expressed understanding and agreement. All questions were answered. Thank you for involving us in the care of your patient. Please call with any questions. The patient will be discussed and reviewed with Dr. Alvarado; changes to be made accordingly. Subjective Principal diagnosis: Dehydration Interval history: Seen and examined. Patient reports symptoms have improved; states he is generally feeling better. Continues to have poor appetite. No chest pain/discomfort. No dyspnea. No pre-syncope or syncope described. Objective General: Conversant, No Apparent Distress HEENT: Atraumatic, Normocephaly Cardiac: Other (bradycardiac) Lungs: Normal Breath Sounds Neuro: Alert and responsive Abdomen: Soft Skin: No rashes noted on visualized skin Musculoskeletal: No Chest Wall Tenderness Extremities: No Edema, Normal Pulses Results 02/13/19 04:52 02/13/19 04:52 Lab Results 02/12/19 02/13/19 02/13/19 12:29 04:52 04:52 WBC 4.4 Hgb 10.8 L Hct 32.3 L Plt Count 136 L Sodium 137 Potassium 3.7 Chloride 104 Carbon Dioxide 22 L BUN 49 H Creatinine 2.10 H Glucose 118 H Calcium 9.3 Troponin I 0.21 H* Active Medications Acetaminophen (Tylenol) 650 mg PO Q6HR PRN PRN Reason: Mild Pain/Fever Stop: 08/13/19 17:52 Aspirin (Aspirin Ec) 81 mg PO DAILY [facility] Stop: 08/14/19 09:01 Last Admin: 02/13/19 08:48 Dose: 81 mg Documented by: Atorvastatin Calcium (Lipitor) 20 mg PO DAILY [facility] Stop: 08/14/19 09:01 Last Admin: 02/13/19 08:48 Dose: 20 mg Documented by: Heparin Sodium (Porcine) (Heparin) 5,000 unit SQ Q12HCO [facility]; Protocol Stop: 08/14/19 06:01 Last Admin: 02/13/19 05:59 Dose: Not Given Documented by: Ceftriaxone Sodium 1,000 mg/ (Sterile Water) 10 mls @ 600 mls/hr IVP DAILY [facility] Stop: 08/14/19 09:01 Last Admin: 02/13/19 08:48 Dose: 600 mls/hr Documented by: Naloxone HCl (Narcan) 0.4 mg IVP Q2MPRN PRN PRN Reason: SEE COMMENTS Stop: 08/14/19 12:19 Ondansetron HCl (Zofran Odt) 4 mg SL Q8HR PRN PRN Reason: Nausea And Vomiting Stop: 08/13/19 17:52 Promethazine HCl (Phenergan) 12.5 mg IVP Q6HR PRN PRN Reason: Nausea And Vomiting Stop: 08/13/19 17:52 Tamsulosin HCl (Flomax) 0.4 mg PO DAILY [facility]; Protocol Stop: 08/14/19 13:21 Last Admin: 02/13/19 08:48 Dose: 0.4 mg Documented by: - Imaging and Cardiology Echo: pending - EKG Interpretation EKG results cardiology: personally reviewed Consult Discharge Plan - Plan Referrals: Suzi Aponte, TRANSFER KNITTER [Primary Care Provider] -
--- NOTE | 2019-02-13 13:52 | Electrocardiograph Report ---
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
[2019-02-13] MEDS ORDERED: Ringers Solution, Lactated 1,000 ML IVC ONE ×2 (14:11→18:07)
[2019-02-13] MEDS ORDERED: Enzalutamide [Xtandi] 160 MG PO SCH (14:15)
--- NOTE | 2019-02-13 15:03 | Electrocardiograph Report ---
[place] [id number] Test Date: 2019-02-13 Pat Name: Kevin Gonzalez Department: 115 Room: 3A Gender: M Security Screener: : 1935 Requested By: Micah Arellano Order Number: [id number] Reading MD: Pedro Muniz Measurements Intervals [place] Rate: 54 P: -6 [place]: 353 QRS: -14 QRSD: 87 T: 28 QT: 412 QTc: 399 Interpretive Statements SINUS BRADYCARDIA WITH FIRST DEGREE AV BLOCK Electronically Signed On 02-13-2019 15:01:24 EDT by Pedro Muniz
[2019-02-13] MEDS: XTANDI 40 MG PO SCH (17:32)
[2019-02-13] MEDS ORDERED: Ringers Solution, Lactated 1,000 ML ONE (18:33)
--- NOTE | 2019-02-13 18:45 | Internal Med Progress Note ---
Hospitalist Progress Note - Encounter Date of Encounter: 02/13/19 Time of Encounter: 18:43 - Exam Vitals: Temp Pulse Resp BP Pulse Ox 98.3 F 76 17 105/60 96 02/13/19 15:09 02/13/19 15:09 02/13/19 15:09 02/13/19 15:09 02/13/19 15:09 Exam: General: Ill-appearing and in no acute distress HEENT: No erythema of posterior pharynx. No exudates. Lymphatics: No mandibular or cervical lymphadenopathy Cardiovascular: RRR. No murmurs. No chest wall tenderness. Lungs: Clear to auscelltation bilaterally. Regular chest rise. Abdomen: Non-tender. No rebound or gaurding. Nl bowel sounds. Extremities: No edema. 2+ pulses radial and pedal pulses Skin: No rahses, abrasions, or contusions. Nl cap refill. Psych: Short-term memory appears impaired and patient rambles when speaking. A&Ox3 Neuro: plant safety engineer II-XII intact. 5/5 strength. Sensation to light touch and pinprick intact. 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 Blood cultures have been negative (looked back and there were drawn before ceftriaxone was started). In the setting of heart block, highly concerning for endocarditis. Could be culture-negative endocarditis. Unfortunately no infectious disease coverage this week. Discussed with family. Will do VITALY here but anticipate patient may need transfer to [place]. - V[facility]Y - Anticipate transfer patient (2) Hypovolemia due to dehydration Current Visit: Yes Status: Acute Assessment and Plan: Patient with history of prostate cancer on oral chemotherapy and hypertension on hydrochlorothiazide and RAY inhibitor presents with 2 weeks of weakness and presyncopal episodes in the setting of hypotension on presentation but otherwise stable vitals (did not meet SIRS/Sepsis criteria), largely unremarkable physical exam, acute kidney failure, troponin elevation, UA concerning for infection, and extensive imaging without acute pathology. -Severe dehydration likely secondary to intolerance of increased dose of chemotherapy in the setting of diuretic use - discussed chemotherapy with patient's urologist and does not recommend discontinuation -Acute cystitis may also be contributing to dehydration - culture negative -Still orthostatic today. Given more fluid. Concern for endocarditis per above. PLANS: - IVF - Workup for endocarditis per above - Hold antibiotics for now (3) Acute cystitis without hematuria Current Visit: Yes Status: Acute Assessment and Plan: Likely contributing to hypovolemia. Patient has no symptoms. No history of BPH, however, patient has history of prostate cancer so likely large prostate. Culture negative. - Placed on Flomax given at risk for future UTIs (4) Prostate cancer Current Visit: Yes Status: Acute Assessment and Plan: On oral chemotherapy (Enzalutamide) o/p. Follows with oncology in [place]. - Discussed case with patient's urologist and does not recommend discontinuation of therapy (5) Acute on chronic kidney failure Current Visit: Yes Status: Acute Assessment and Plan: Severe renal impairment on admission in setting of dehydration likely pre-renal + ATN. Unclear if patient has chronic renal insufficiency but this is suspected. Improving with IV fluids. - IVF (6) Second degree heart block Current Visit: Yes Status: Acute Assessment and Plan: EKG with first-degree heart block and question of secondary heart block on telemetry. Cardiology was consulted and reviewed telemetry strips. Do not believe patient has a primary electrocardiac process but rather abnormalities related to severe dehydration. In setting of mitral mass, highly concerning for endocarditis. Cardiology does not recommend pacemaker at this time. - Monitor on telemetry (7) Elevated troponin I level Current Visit: Yes Status: Acute Assessment and Plan: Likely due to stress causing type II demand ischemia in setting of hypovolemia. Have since trended down. (8) CAD (coronary artery disease) Current Visit: Yes Status: Acute Assessment and Plan: History of CABG in the past. - Continue home aspirin and statin - Hold blood pressure medications DVT Prophylaxis: Heparin - Time Spent with Patient Total time spent is greater than 50% in coordination of care (as documented) at patient's floor/unit and/or counseling patient: Internal Medicine: Result - Labs CBC & Chem 7: 02/13/19 04:52 02/13/19 04:52 Labs: Short CBC 02/13/19 Range/Units 04:52 WBC 4.4 (4.3-11.1) K/mcL Hgb 10.8 L (12.9-16.9) g/dL Hct 32.3 L (37.5-50.1) % Plt Count 136 L (140-400) K/mcL BMP 02/13/19 04:52 Sodium 137 Potassium 3.7 Chloride 104 Carbon Dioxide 22 L BUN 49 H Creatinine 2.10 H Glucose 118 H Calcium 9.3 - ABG Interpretation ABG results: PT/INR, D-dimer PT 11.6 Seconds (9.4-12.1) 02/11/19 11:55 - Impressions Impressions Echocardiogram 02/12/19 11:16 Impressions: LVEF 60%. Severe concentric left ventricular hypertrophy. Mild left ventricular diastolic dysfunction. Moderately dilated left atrium. Mild mitral regurgitation. There is a 7mm x 3mm echogenic material on the left ventricular side of the anterior mitral valve leaflet. Recommend clinical correlation. Mild tricuspid regurgitation. No evidence of pulmonary hypertension. Left Ventricular Wall Motion: Rest Echo Findings All wall segments showed normal motion. Findings: Study Quality * Technically adequate exam. ECG Findings * Normal sinus rhythm. Left Ventricle * LVEF 60%. * Severe concentric left ventricular hypertrophy. * Normal LV chamber size. * Mild left ventricular diastolic dysfunction. Right Ventricle * The right ventricle was not well visualized. Left Atrium * Moderately dilated left atrium. Right Atrium * Normal right atrial size. Aortic Valve * Aortic valve not well visualized. * Moderately sclerotic aortic valve leaflets. * No aortic regurgitation. * No aortic stenosis. Mitral Valve * Mild mitral regurgitation. * There is a 7mm x 3mm echogenic material on the left ventricular side of the anterior mitral valve leaflet. Recommend clinical correlation. * No mitral stenosis. * Mild mitral annular calcification Tricuspid Valve * Mild tricuspid regurgitation. * Normal tricuspid valve structure. * No tricuspid stenosis. * No evidence of pulmonary hypertension. Pulmonic Valve * Pulmonic valve not well visualized. Aorta * Normally sized aortic root. Pericardium * The pericardium appears normal. IVC * Normal IVC dimensions and inspiratory collapse. Pulmonary Artery * Pulmonary artery not well visualized. Consult Discharge Plan - Plan Referrals: Suzi Aponte, OSTRICH FARM WORKER [Primary Care Provider] - (5) Acute on chronic kidney failure Qualifiers: Acute renal failure type: with acute tubular necrosis Chronic kidney disease stage: unspecified stage Qualified Code(s): N17.0 - Acute kidney failure with tubular necrosis; N18.9 - Chronic kidney disease, unspecified (8) CAD (coronary artery disease) Qualifiers: Coronary Disease-Associated Artery/Lesion type: [place] artery [place] vs. transplanted heart: [place] heart Associated angina: without angina Qualified Code(s): I25.10 - Atherosclerotic heart disease of [place] coronary artery w ithout angina pectoris
[2019-02-14] MEDS: *HR* Heparin 5,000 UNIT/ML VIAL SQ SCH ×2 (04:22→17:39)
[2019-02-14 06:18] LABS: Hematocrit 32.4 % (37.5-50.1); Hemoglobin 10.7 g/dL (12.9-16.9); Mean Corpuscular Hemoglobin 31.8 pg (28.0-33.3); Mean Corpuscular Volume 96.4 fL (83.0-100.0); Mean Platelet Volume 11.4 fL (9.4-12.4); Platelet Count 139 K/mcL (140-400); Red Blood Count 3.36 M/mcL (4.19-5.50); Red Cell Distribution Width 13.5 % (11.5-14.5); White Blood Count 4.3 K/mcL (4.3-11.1)
--- NOTE | 2019-02-14 06:24 | Electrocardiograph Report ---
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
[2019-02-14 06:34] LABS: Calcium 9.3 mg/dL (8.6-10.3); Potassium 3.9 mEq/L (3.5-5.1)
[2019-02-14] MEDS ORDERED: Enzalutamide [Xtandi] 40 MG PO SCH (09:00)
--- NOTE | 2019-02-14 09:22 | Event Note ---
Date of Encounter: 02/14/19 Time of Encounter: 09:00 - Cardiology Event Note Reviewed TTE findings with Dr. Alvarado; no urgent need for VITALY at this time. Can be considered in the outpatient setting. Suspect likely a calcification on the mitral valve. Afebrile. WBC normal. After discussion with Dr. Alvarado; if there is a clinical suspicion for endocarditis, would recommend ID consult to determine if VITALY clinically warranted. One episode of Mobitz type 1 noted overnight, again, patient was symptomatic. Clinically, he is improving with IVF, SCr 1.6 today. Avoid AV thomas blocking agents. TTE shows preserved LVEF. No further inpt recommendations. Patient states he has upcoming appt with Dr. Cm (primary Nursery Teacher) next week. Patient was discussed and reviewed with Dr. Alvarado.
[2019-02-14] MEDS: Aspirin Enteric Coated 81 MG Tablet PO SCH (09:40)
[2019-02-14] MEDS ORDERED: Ringers Solution, Lactated 1,000 ML IVC ONE ×2 (10:35→15:16)
[2019-02-14] MEDS: XTANDI 40 MG PO SCH (11:58)
--- NOTE | 2019-02-14 15:18 | Internal Med Progress Note ---
Hospitalist Progress Note - Encounter Date of Encounter: 02/14/19 Time of Encounter: 15:16 - Subjective Interval History: Discussed mass on mitral valve with cardiology. Thinks this is just calcification of mitral valve and does not recommend VITALY in the inpatient setting. Patient with persistent orthostasis spite holding all of home blood pressure medications. - Exam Vitals: Temp Pulse Resp BP Pulse Ox 98.4 F 80 17 93/62 96 02/14/19 14:37 02/14/19 14:37 02/14/19 14:37 02/14/19 14:37 02/14/19 14:37 Exam: General: Ill-appearing and in no acute distress HEENT: No erythema of posterior pharynx. No exudates. Lymphatics: No mandibular or cervical lymphadenopathy Cardiovascular: RRR. No murmurs. No chest wall tenderness. Lungs: Clear to auscelltation bilaterally. Regular chest rise. Abdomen: Non-tender. No rebound or gaurding. Nl bowel sounds. Extremities: No edema. 2+ pulses radial and pedal pulses Skin: No rahses, abrasions, or contusions. Nl cap refill. Psych: Short-term memory appears impaired and patient rambles when speaking. A&Ox3 Neuro: geotechnician II-XII intact. 5/5 strength. Sensation to light touch and pinprick intact. - Assessment and Plan (1) Hypovolemia due to dehydration Current Visit: Yes Status: Acute Assessment and Plan: Patient with history of prostate cancer on oral chemotherapy and hypertension on hydrochlorothiazide and RAY inhibitor presents with 2 weeks of weakness and presyncopal episodes in the setting of hypotension on presentation but otherwise stable vitals (did not meet SIRS/Sepsis criteria), largely unremarkable physical exam, acute kidney failure, troponin elevation, UA concerning for infection, and extensive imaging without acute pathology. -Severe dehydration likely secondary to intolerance of increased dose of chemotherapy in the setting of diuretic use - discussed chemotherapy with patient's urologist and does not recommend discontinuation -Still orthostatic despite 5+L of IVF: No signs of infection and blood cxs negative. Concern for veg on mitral valve but patient thinks this is just calcification Started Flomax this admission so could be medication-induced - will discontinue Will also check data migration lead cortisol to eval for adrenal dysfunction TTE with nl EF and without evidence of tampanode and low suspicion for PE given not hypoxic Query whether new Mobitz Type I heart block could be contributing Only infrequent (once overnight) episodes of Mobitz but unclear if patient is having adequete HR responsewhen standing. 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 Blood cultures have been negative (looked back and there were drawn bef ore ceftriaxone was started). Discussed mass on mitral valve with cardiology. Thinks this is just calcification of mitral valve and does not recommend VITALY in the inpatient setting. - No further workup (4) Acute cystitis without hematuria Current Visit: Yes Status: Acute Assessment and Plan: Likely contributing to hypovolemia. Patient has no symptoms. No history of BPH, however, patient has history of prostate cancer so likely large prostate. Culture negative. - Placed on Flomax given at risk for future UTIs - Discontinued given ort hostasis (5) Prostate cancer Current Visit: Yes Status: Acute Assessment and Plan: On oral chemotherapy (Enzalutamide) o/p. Follows with oncology in [place]. - Discussed case with patient's urologist and does not recommend discontinuation of therapy (6) Acute on chronic kidney failure Current Visit: Yes Status: Acute Assessment and Plan: Severe renal impairment on admission in setting of dehydration likely pre-renal + ATN. Unclear if patient has chronic renal insufficiency but this is suspected. Improving with IV fluids. - IVF (7) Second degree heart block Current Visit: Yes Status: Acute Assessment and Plan: EKG with first-degree heart block and question of secondary heart block on telemetry. Cardiology was consulted and reviewed telemetry strips. Cardiology does not recommend pacemaker at this time. - Monitor on telemetry (8) Elevated troponin I level Current Visit: Yes Status: Acute Assessment and Plan: Likely due to stress causing type II demand ischemia in setting of hypovolemia. Have since trended down. (9) CAD (coronary artery disease) Current Visit: Yes Status: Acute Assessment and Plan: History of CABG in the past. - Continue home aspirin and statin - Hold blood pressure medications DVT Prophylaxis: Heparin Internal Medicine: Result - Labs CBC & Chem 7: 02/14/19 05:55 02/14/19 05:55 Labs: Short CBC 02/14/19 Range/Units 05:55 WBC 4.3 (4.3-11.1) K/mcL Hgb 10.7 L (12.9-16.9) g/dL Hct 32.4 L (37.5-50.1) % Plt Count 139 L (140-400) K/mcL BMP 02/14/19 05:55 Sodium 136 Potassium 3.9 Chloride 104 Carbon Dioxide 25 BUN 32 H Creatinine 1.60 H Glucose 125 H Calcium 9.3 - ABG Interpretation ABG results: PT/INR, D-dimer PT 11.6 Seconds (9.4-12.1) 02/11/19 11:55 Consult Discharge Plan - Plan Referrals: Suzi Aponte, EDGARDO [Primary Care Provider] - ____ (6) Acute on chronic kidney failure Qualifiers: Acute renal failure type: with acute tubular necrosis Chronic kidney disease stage: unspecified stage Qualified Code(s): N17.0 - Acute kidney failure with tubular necrosis; N18.9 - Chronic kidney disease, unspecified (9) CAD (coronary artery disease) Qualifiers: Coronary Disease-Associated Artery/Lesion type: [place] artery [place] vs. transplanted heart: [place] heart Associated angina: without angina Qualified Code(s): I25.10 - Atherosclerotic heart disease of [place] coronary artery without angina pectoris
[2019-02-15] MEDS: *HR* Heparin 5,000 UNIT/ML VIAL SQ SCH ×2 (05:44→17:57)
[2019-02-15 07:02] LABS: Hematocrit 31.3 % (37.5-50.1); Hemoglobin 10.4 g/dL (12.9-16.9); Mean Corpuscular HGB Conc 33.2 g/dL (31.6-35.5); Mean Corpuscular Volume 96.3 fL (83.0-100.0); Mean Platelet Volume 11.3 fL (9.4-12.4); Platelet Count 138 K/mcL (140-400); Red Blood Count 3.25 M/mcL (4.19-5.50); Red Cell Distribution Width 13.6 % (11.5-14.5); White Blood Count 4.2 K/mcL (4.3-11.1)
[2019-02-15 07:29] LABS: BUN/Creatinine Ratio 15 (6-26); Blood Urea Nitrogen 20 mg/dL (8-23); Calcium 9.1 mg/dL (8.6-10.3); Carbon Dioxide 25 mEq/L (23-29); Chloride 105 mEq/L (98-107); Glucose 125 mg/dL (70-105); Osmolality,Calculated 286 (280-300); Potassium 3.7 mEq/L (3.5-5.1); Sodium 136 mEq/L (136-145); eGFR For African Americans > 60 (> 60); eGFR For Non-African Americans 50 (> 60)
[2019-02-15] MEDS: Aspirin Enteric Coated 81 MG Tablet PO SCH (08:50)
[2019-02-15] MEDS: XTANDI 40 MG PO SCH (09:00)
--- NOTE | 2019-02-15 14:17 | Internal Med Progress Note ---
Hospitalist Progress Note - Encounter Date of Encounter: 02/15/19 Time of Encounter: 09:00 - Subjective Interval History: cornelius was seen and examined at bedside. family at bedside all questions answered. denies NV/D. feels better than how he felt on admission. tolerating PO diet. denies chest pain or plapitations. i discussed that we will get new ortho statics and that i will review his chart in order to provide him with further explanation. all labs and imaging studies discussed. - Exam Vitals: Temp Pulse Resp BP Pulse Ox 98.0 F 79 15 158/82 97 02/15/19 11:06 02/15/19 11:06 02/15/19 11:06 02/15/19 12:40 02/15/19 11:06 Exam: General:no acute distress HEENT: No erythema of posterior pharynx. No exudates. Cardiovascular: RRR. No murmurs. No chest wall tenderness. Lungs: Clear to auscelltation bilaterally. Regular chest rise. Abdomen: Non-tender. No rebound or gaurding. Nl bowel sounds. Extremities: No edema. 2+ pulses radial and pedal pulses Skin: No rahses, abrasions, or contusions. Nl cap refill. Neuro:A&Ox3 no focal deficit - Assessment and Plan (1) Hypovolemia due to dehydration Current Visit: Yes Status: Acute Assessment and Plan: Patient with history of prostate cancer on oral chemotherapy and hypertension on hydrochlorothiazide and RAY inhibitor presents with 2 weeks of weakness and presyncopal episodes in the setting of hypotension on presentation but otherwise stable vitals (did not meet SIRS/Sepsis criteria), largely unremarkable physical exam, acute kidney failure, troponin elevation, UA concerning for infection, and extensive imaging without acute pathology. -Severe dehydration likely secondary to intolerance of increased dose of chemotherapy in the setting of diuretic use - discussed chemotherapy with delfin danae's urologist and does not recommend discontinuation -Still orthostatic despite IVF No signs of infection and blood cxs negative. Concern for veg on mitral valve as per cardiology it is calcification- has not recommended VITALY while in patient as per my colleague discussion. No ID community relations representative doubt endocarditis as he does not have history of IVD abuse, blood cx NGTD x 4. no spliter hemorrhages or osler nodes. no fever or leukocytosis Started Flomax this admission so could be medication-induced - was discontinued cortisol level was 12 TTE with nl EF and without evidence of tampanode and low suspicion for PE given not hypoxic Query whether new Mobitz Type I heart block could be contributing Only infrequent (once overnight) episodes of Mobitz but unclear if patient is having adequete HR responsewhen standing. PLANS: will consult nephrology to help with orthostatics. LORENZA hose stockings ordered. orthostatics positive again on 02/15. hold all medications that can cause orthostatics. (2) Second degree heart block Current Visit: Yes Status: Acute Assessment and Plan: EKG with first-degree heart block and question of secondary heart block on telemetry. Cardiology was consulted and reviewed telemetry strips. Cardiology does not recommend pacemaker at this time. - Monitor on telemetry hold and avoid AV thomas blocking agents (3) Elevated troponin I level Current Visit: Yes Status: Acute Assessment and Plan: Likely due to stress causing type II demand ischemia in setting of hypovolemia. cardiology was consulted - recs appreicated continue with ASA and statins no further work up was recommended by cardiology team. TTE: LVEF 60%. Severe concentric left ventricular hypertrophy. Mild left ventricular diastolic dysfunction. Moderately dilated left atrium. Mild mitral regurgitation. There is a 7mm x 3mm echogenic material on the left ventricular side of the anterior mitral valve leaflet. Recommend clinical correlation. Mild tricuspid regurgitation. No evidence of pulmonary hypertension. 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 Blood cultures have been negative (looked back and there were drawn before ceftriaxone was started). my colleague Discussed mass on mitral valve with cardiology on 02/14. Thinks this is just calcification of mitral valve and does not recommend VITALY in the inpatient setting. - No further workup (5) Prostate cancer Current Visit: Yes Status: Acute Assessment and Plan: On oral chemotherapy (Enzalutamide) o/p. Follows with oncology in [place]. my colleague Discussed case with patient's urologist and does not recommend discontinuation of therapy (6) CAD (coronary artery disease) Current Visit: Yes Status: Acute Assessment and Plan: History of CABG in the past. - Continue home aspirin and statin - Hold blood pressure medications/BB (7) Orthostasis Current Visit: Yes Status: Acute Assessment and Plan: See above (8) Acute renal failure Current Visit: Yes Status: Acute Assessment and Plan: Severe renal impairment on admission in setting of dehydration likely pre-renal + ATN. has improved with IVF avoid nephrotoxic medications CT A/P with out evidence of hydronephrosis. continue strict I/O (9) Acute cystitis without hematuria Current Visit: Yes Status: Resolved Assessment and Plan: Likely contributing to hypovolemia. Patient has no symptoms. No history of BPH, however, patient has history of prostate cancer so likely large prostate. Culture negative. - Placed on Flomax given at risk for future UTIs - Discontinued given orthostasis (10) Abnormal finding on CT scan Current Visit: Yes Status: Acute Assessment and Plan: surgery was consulted: as per surgery"he patient is completely asymptomatic in this area. There appears to be an age indeterminate fluid collection just anterior to the distal right external iliac artery. This does not appear to be connected to the digestive or urinary system. Physical examination is completely benign. Surgery feels that this is a completely benign findings and no further workup is necessary. Surgery will sign off" DVT Prophylaxis: heparin sc - Time Spent with Patient Total time spent is greater than 50% in coordination of care (as documented) at patient's floor/unit and/or counseling patient: Internal Medicine: Result - Labs CBC & Chem 7: 02/15/19 06:47 02/15/19 06:47 Labs: Short CBC 02/15/19 Range/Units 06:47 WBC 4.2 L (4.3-11.1) K/mcL Hgb 10.4 L (12.9-16.9) g/dL Hct 31.3 L (37.5-50.1) % Plt Count 138 L (140-400) K/mcL BMP 02/15/19 06:47 Sodium 136 Potassium 3.7 Chloride 105 Carbon Dioxide 25 BUN 20 Creatinine 1.35 H Glucose 125 H Calcium 9.1 - ABG Interpretation ABG results: PT/INR, D-dimer PT 11.6 Seconds (9.4-12.1) 02/11/19 11:55 Consult Discharge Plan - Plan Referrals: Suzi Aponte, FINANCIAL RETIREMENT PLAN SPECIALIST [Primary Care Provider] - (6) CAD (coronary artery disease) Qualifiers: Coronary Disease-Associated Artery/Lesion type: [place] artery [place] vs. transplanted heart: [place] heart Associated angina: without angina Qualified Code(s): I25.10 - Atherosclerotic heart disease of [place] coronary artery without angina pectoris (8) Acute renal failure Qualifiers: Acute renal failure type: unspecified Qualified Code(s): N17.9 - Acute kidney failure, unspecified
[2019-02-16 06:20] LABS: Calcium 9.2 mg/dL (8.6-10.3); Potassium 3.9 mEq/L (3.5-5.1)
[2019-02-16 06:21] LABS: % Iron Saturation 20 % (20-55); Iron 51 mcg/dL (65-175); Transferrin 186 mg/dL (203-362)
[2019-02-16 06:31] LABS: Ferritin 217 ng/mL (20-250)
[2019-02-16] MEDS: *HR* Heparin 5,000 UNIT/ML VIAL SQ SCH ×2 (06:44→17:33)
[2019-02-16 08:09] LABS: Folate 7.3 ng/mL (3.0-16.0)
[2019-02-16] MEDS: Aspirin Enteric Coated 81 MG Tablet PO SCH (09:35)
[2019-02-16] MEDS: XTANDI 40 MG PO SCH (09:36)
--- NOTE | 2019-02-16 11:04 | Internal Med Progress Note ---
Hospitalist Progress Note - Encounter Date of Encounter: 02/16/19 Time of Encounter: 08:00 - Subjective Interval History: Patient was seen and examined at bedside. No overnight events. Feeling much better than admission. Denies any syncopal episodes, has had no dizziness, chest pain, palpitations or shortness of breath. I discussed all lab works with him and he understands. He is awaiting nephrology consultation for further recommendations about his orthostatic blood pressures. All questions answered. Denies fever, chills, nausea, vomiting or diarrhea. Tolerating by mouth diet. - Exam Vitals: Temp Pulse Resp BP Pulse Ox 98.2 F 71 17 142/78 97 02/16/19 07:38 02/16/19 07:38 02/16/19 07:38 02/16/19 07:38 02/16/19 07:38 Exam: General:no acute distress HEENT: No erythema of posterior pharynx. No exudates. Cardiovascular: RRR. No murmurs. No chest wall tenderness. Lungs: Clear to auscelltation bilaterally. Regular chest rise. Abdomen: Non-tender. No rebound or gaurding. Nl bowel sounds. Extremities: No edema. 2+ pulses radial and pedal pulses Skin: No rahses, abrasions, or contusions. Nl cap refill. Neuro:A&Ox3 no focal deficit - Assessment and Plan (1) Hypovolemia due to dehydration Current Visit: Yes Status: Acute Assessment and Plan: Patient with history of prostate cancer on oral chemotherapy and hypertension on hydrochlorothiazide and RAY inhibitor presents with 2 weeks of weakness and presyncopal episodes in the setting of hypotension on presentation but otherwise stable vitals (did not meet SIRS/Sepsis criteria), largely unremarkable physical exam, acute kidney failure, troponin elevation, UA concerning for infection, and extensive imaging without acute pathology. -Severe dehydration likely secondary to intolerance of increased dose of chemotherapy in the setting of diuretic use - discussed chemotherapy with teodora carlos's urologist and does not recommend discontinuation -Still orthostatic despite IVF No signs of infection and blood cxs negative. Concern for veg on mitral valve as per cardiology it is calcification- has not recommended VITALY while in patient as per my colleague discussion. No ID business consultant doubt endocarditis as he does not have history of IVD abuse, blood cx NGTD x 4. no spliter hemorrhages or osler nodes. no fever or leukocytosis Started Flomax this admission so could be medication-induced - was discontinued cortisol level was 12 TTE with wnl EF and without evidence of tampanode and low suspicion for PE given not hypoxic Query whether new Mobitz Type I heart block could be contributing Only infrequent (once overnight) episodes of Mobitz but unclear if patient is having adequete HR responsewhen standing. PLANS: nephrology consulted to help with orthostatics- ?midodrine LORENZA hose stockings were placed will repeat orthostatics again today i disucssed that he will need to get up from sitting or laying position very slowly and cautiously adn he understands. orthostatics positive again on 02/15. hold all medications that can cause orthostatics. (2) Orthostasis Current Visit: Yes Status: Acute Assessment and Plan: See above (3) Second degree heart block Current Visit: Yes Status: Acute Assessment and Plan: EKG with first-degree heart block and question of secondary heart block on telemetry. Cardiology was consulted and reviewed telemetry strips. Cardiology does not recommend pacemaker at this time. - Monitor on telemetry hold and avoid AV thomas blocking agents (4) Elevated troponin I level Current Visit: Yes Status: Acute Assessment and Plan: Likely due to stress causing type II demand ischemia in setting of hypovolemia. cardiology was consulted - recs appreicated continue with ASA and statins no further work up was recommended by cardiology team. TTE: LVEF 60%. Severe concentric left ventricular hypertrophy. Mild left ventricular diastolic dysfunction. Moderately dilated left atrium. Mild mitral regurgitation. There is a 7mm x 3mm echogenic material on the left ventricular side of the anterior mitral valve leaflet. Recommend clinical correlation. Mild tricuspid regurgitation. No evidence of pulmonary hypertension. 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 Blood cultures have been negative (looked back and there were drawn before ceftriaxone was started). my colleague Discussed mass on mitral valve with cardiology on 02/14. Thinks this is just calcification of mitral valve and does not recommend VITALY in the inpatient setting. - No further workup (6) CAD (coronary artery disease) Current Visit: Yes Status: Acute Assessment and Plan: History of CABG in the past. - Continue home aspirin and statin - Hold blood pressure medications/BB (7) Acute renal failure Current Visit: Yes Status: Acute Assessment and Plan: Severe renal impairment on admission in setting of dehydration likely pre-renal + ATN. has improved with IVF avoid nephrotoxic medications CT A/P with out evidence of hydronephrosis. continue strict I/O nephrology consulted (8) Abnormal finding on CT scan Current Visit: Yes Status: Acute Assessment and Plan: surgery was consulted: as per surgery"he patient is completely asymptomatic in this area. There appears to be an age indeterminate fluid collection just anterior to the distal right external iliac artery. This does not appear to be connected to the digestive or urinary system. Physical examination is completely benign. Surgery feels that this is a completely benign findings and no further workup is necessary. Surgery will sign off" (9) Prostate cancer Current Visit: Yes Status: Acute Assessment and Plan: On oral chemotherapy (Enzalutamide) o/p. Follows with oncology in [place]. my colleague Discussed case with patient's urologist and does not recommend discontinuation of therapy (10) Acute cystitis without hematuria Current Visit: Yes Status: Resolved Assessment and Plan: Likely contributing to hypovolemia. Patient has no symptoms. No history of BPH, however, patient has history of prostate cancer so likely large prostate. Culture negative. - Placed on Flomax given at risk for future UTIs - Discontinued given orthostasis DVT Prophylaxis: heparin sc - Summary of Assessment and Plan Summary of Assessment and Plan: patient was admitted on 02/11 my first encounter with [facility] patient was on 02/15 - Time Spent with Patient Total time spent is greater than 50% in coordination of care (as documented) at patient's floor/unit and/or counseling patient: Internal Medicine: Result - Labs CBC & Chem 7: 02/15/19 06:47 02/16/19 05:30 Labs: BMP 02/16/19 05:30 Sodium 141 Potassium 3.9 Chloride 98 Carbon Dioxide 26 BUN 18 Creatinine 1.38 H Glucose 119 H Calcium 9.2 - ABG Interpretation ABG results: PT/INR, D-dimer PT 11.6 Seconds (9.4-12.1) 02/11/19 11:55 - VTE Documentation of Mechanical Device: Graduated compression elastic hosiery Consult Discharge Plan - Plan Referrals: Suzi Aponte, ELECTRONIC VIDEO GAMES SERVICER [Primary Care Provider] - (6) CAD (coronary artery disease) Qualifiers: Coronary Disease-Associated Artery/Lesion type: [place] artery [place] vs. transplanted heart: [place] heart Associated angina: without angina Qualified Code(s): I25.10 - Atherosclerotic heart disease of [place] coronary artery without angina pectoris (7) Acute renal failure Qualifiers: Acute renal failure type: unspecified Qualified Code(s): N17.9 - Acute kidney failure, unspecified
--- NOTE | 2019-02-16 13:31 | Nephrology Consult Note ---
<Campbell Menchaca - Last Filed: 02/16/19 22:18> Date of Encounter: 02/16/19 Time of Encounter: 11:00 Assessment and Plan (1) Orthostasis Status: Acute Patient has had positive orthostatic vital signs Last performed 02/15 Ayziq=341/82; vrtfpbs=829/80; standing=63/42 Cortisol ordered and within normal limits Patient has not had Tilt-test Possible Etiology: -Mitral valve vegetation observed on TTE, normal EF. Per cardiology this is likely calcification, no recommendation for VITALY -Infrequent episodes of second-degree heart block might be contributing -No reflex tachycardia, POTS less likely -Dysautonomia less likely given no history of DM -Possibly Xtandi medication side effect Plan: -Recommend re-ordering orthostatic vitals -We will order TSH/free T4 -Urine output remains suboptimal, recommend encouraging oral fluids or IV hydration -No indication for midodrine at this time -If patient continues to have problems with orthostatics, please consult cardiology for tilt table test and further evaluation -Patient will require follow-up in the outpatient setting with Dr. Story for his TIFFANIE (2) Acute kidney injury Status: Acute Patient presented with TIFFANIE Likely secondary to renal hypoperfusion in setting of dehydration Patient has been adequately fluid resuscitated during admission Serum creatinine has responded appropriately SCr: 3.53-->2.94-->2.47-->2.1-->1.6-->1.38 Patient did have reduction in urine output initially Like is secondary to ATN and renal hypoperfusion Kidney function is recovering UOP: 0.95 L yesterday, 0.77 L today Plan: -Continue to encourage oral rehydration -Continue to trend creatinine -Avoid nephrotoxins, monitor I/O, renal dose meds -Patient will need hospital follow-up with Dr. Story in the outpatient setting in 3-4 weeks History of Present Illness - Reason for Consult Consult date: 02/16/19 Acute Kidney Injury - Chief Complaint Syncope - History of Present Illness Mr. Gonzalez is a 83 year old male with a reported history of CAD, previous CABG, prostate cancer, prior NV, diabetes and renal disease who is admitted to the hospital for syncope. Patient has a recent history of prostate cancer with oral chemotherapy. He does report that chemo dose increased recently with worsening weakness and increasing bouts of syncope since that time. Patient reports he has lost 30 pounds over the last few months. His appetite has greatly decreased and he does not drink much fluid. His symptoms worsened over the last week. He has noticed increasing fatigue, lack of energy, and exertional limitation. In the ER, patient was noted to be hypotensive likely 2/2 dehydration. He was given IV fluids with good improvement in BP. He did have an TIFFANIE in the ED, creatinine 2.94, still making good amounts of urine. Nephrology was consulted for persistent orthostatic hy potension on Hospital day 5. Patient states his symptoms seem significantly improved since admission. Feels as though the IV fluids helped. Denies any more problems with lightheadedness or dizziness, feels his weakness/fatigue has gotten better. His serum creatinine has improved significantly. Past Med Surg Social Fam HX - Past Medical History Medical history: cancer, diabetes, myocardial infarction, renal disease Additional medical history: prostate cancer - Past Surgical History Additional surgical history: hernia, bypass - Social History Smoking Status: Never smoker Alcohol use: none Drug use: none - Family History Father Hx Family Cardiac Disorders: Yes Medications and Allergies Aspirin [Lo-Dose Aspirin EC] 81 mg PO DAILY 02/11/19 [History] Atorvastatin Calcium [Lipitor] 20 mg PO DAILY 02/11/19 [History] Enzalutamide [Xtandi] 160 mg PO DAILY 02/12/19 [History] Latanoprost [Xalatan] 1 drop BOTH EYES HS 02/12/19 [History] Compression Socks, Medium [Futuro Restoring] 1 each MC DAILY #3 each 02/17/19 [Rx] Allergy/AdvReac Type Severity Reaction Status Date / Time Penicillins Allergy Hives Verified 02/11/19 11:59 Review of Systems Constitutional: frequent falls, weakness, no excessive sweating, no malaise Nose, mouth and throat: dizziness, no disequilibrium, no vertigo Cardiovascular: lightheadedness, rapid heart rate, syncope, no chest pain, no diaphoresis, no dyspnea, no pedal edema Respiratory: no cough, no dyspnea, no hemoptysis, no wheezing Gastrointestinal: no abdominal pain, no diarrhea, no nausea, no vomiting Exam - Vital Signs Vital signs: Initial Vital Signs Temp Pulse Resp BP Pulse Ox 97.4 F L 57 20 76/42 94 02/11/19 11:35 02/11/19 11:35 02/11/19 11:35 02/11/19 11:35 02/11/19 11:35 Vital Signs - Last 8 Hours Temp Pulse Resp BP Pulse Ox 02/16/19 11:25 98.5 F 81 17 125/74 98 02/16/19 07:38 98.2 F 71 17 142/78 97 Intake and Output 02/15/19 02/16/19 02/16/19 23:59 07:59 15:59 Intake Total 480 / 480 Output Total 400 / 950 670 / 770 100 / 770 Balance 80 / -470 -670 / -770 -100 / -770 Intake: Oral 480 / 480 Output: Urine 400 / 950 670 / 770 100 / 770 Other: Meal Dinner Percent of Meal Consumed 25% Stool Size Small Stool Consistency soft Stool Color Brown # Urine Diapers 1 # Bowel Movements 1 1 Weight 76.2 kg Blood Glucose* 154 113 120 Patient Weight 02/16/19 23:59 Weight 76.2 kg - General Appearance Exam: Gen: A and O 3. NAD. Continues to be hypotensive. Head: ATNC Eyes: anicteric sclera, EOMI ENT: Mucous Membranes Moist Neck: No nuchal rigidity, trachea midline CV: Regular rate and rhythm, no murmurs gallops or rubs. Resp: lungs CTAB, no wheezes or crackles Abd: soft, nontender, nondistended, nonrigid Ext: Adequate skin turgor, capillary Refill less than 2 seconds, no peripheral edema, no rash or bruising noted : UOP adequate Results - Lab Results 02/15/19 06:47 02/16/19 05:30 Most recent lab results 02/16/19 05:30 Calcium 9.2 Consult Discharge Plan - Plan Instructions: Urinary Tract Infection in Men (DC), Syncope (DC) Referrals: Dangelo Muhammad MD [Other] - 02/22/19 9:45 am (Urology) Pedro Muniz MD [Partnered Physician] - (Web request sent on 02/17/19) Phani Story MD [Partnered Physician] - (Web request sent on 02/17/19) Suzi Aponte, CORROSION CONTROL FITTER [Primary Care Provider] - 02/27/19 4:00 pm Prescriptions: Compression Socks, Medium [Futuro Restoring] 1 each MC DAILY #3 each <Phani Story - Last Filed: 03/01/19 12:29> Date of Encounter: 02/16/19 Assessment and Plan (1) Renal insufficiency Status: Acute Patient with stable renal function. Can give saline and follow renal function. Exam - Vital Signs Vital signs: Initial Vital Signs Temp Pulse Resp BP Pulse Ox 97.4 F L 57 20 76/42 94 02/11/19 11:35 02/11/19 11:35 02/11/19 11:35 02/11/19 11:35 02/11/19 11:35 Results - Lab Results 02/15/19 06:47 02/17/19 04:58
[2019-02-16 16:10] LABS: Thyroid Stimulating Hormone 1.623 mcIU/mL (0.340-5.600)
[2019-02-16] MEDS: 0.9 % Sodium Chloride 1,000 ML IVC SCH (17:34)
[2019-02-16] MEDS ORDERED: Latanoprost 2.5 ML BOTTLE BOTH EYES SCH (21:00)
[2019-02-17] MEDS: *HR* Heparin 5,000 UNIT/ML VIAL SQ SCH (05:22)
[2019-02-17] MEDS: 0.9 % Sodium Chloride 1,000 ML IVC SCH (05:23)
[2019-02-17 05:50] LABS: Calcium 8.9 mg/dL (8.6-10.3); Potassium 4.1 mEq/L (3.5-5.1)
--- NOTE | 2019-02-17 06:45 | Event Note ---
Date of Encounter: 02/17/19 Time of Encounter: 06:44 - Nephrology Event Note Nephrology chart update The patient's serum creatinine has consistently improved and is now very stable. He will not need dialysis during this admission. Continue to follow a renal protective strategy, and I recommended outpatient nephrology follow-up with my colleague Dr. Story who established yesterday with this pt. I will politely sign off at this time, but please feel free to call or page me with any nephrology related questions. Thank you
[2019-02-17] MEDS: XTANDI 40 MG PO SCH (09:53)
[2019-02-17] MEDS: Aspirin Enteric Coated 81 MG Tablet PO SCH (09:53)
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
[2019-02-17 10:56] VITALS: BP 138/79
== END 2019-02-17 12:53 | disposition home or self-care (01) | DRG 640 ==
LOC: 3ANU 11:29 → EMEROOARM 11:29 → 3ANU 18:26 → SUATTDRO 02-12 17:10
PROVIDERS: ADMIT Student in an Organized Health Care Education/Training Program; ATTEND Internal Medicine